=== PATIENT | female | born 1990 | race Caucasian/White ===

== ENCOUNTER → 2016-11-26 | Outpatient (CLI) | payer MEDICAID | LOC: FIMAGING 13:11 | PROVIDERS: ATTEND Midwife | DX: O09.32 Supervision of pregnancy with insufficient antenatal care, second trimester (principal); O99.322 Drug use complicating pregnancy, second trimester; O09.42 Supervision of pregnancy with grand multiparity, second trimester; Z3A.22 22 weeks gestation of pregnancy ==